=== PATIENT | male | born 1995 | race Caucasian/White ===

== ENCOUNTER 2019-05-16 02:17 | Emergency (ER) | payer BC ==
[2019-05-16] MEDS ORDERED: Lidocaine 1% with EPINEPHrine 1:100,000 20 ML MDV ONE (02:40)
[2019-05-16] MEDS ORDERED: Diphtheria/Tetanus Toxoids,Adult (Td) 0.5 ML SDV IM ONE (03:00)
--- NOTE | 2019-05-16 03:08 | EDM.PDOC ---
ED HPI GENERAL MEDICAL PROBLEM - General Chief Complaint: Laceration Stated Complaint: Needs Stitches Time Seen by Provider: 05/16/19 02:40 Source of Information: Reports: Patient, Significant Other History Limitations: Reports: No Limitations - History of Present Illness INITIAL COMMENTS - FREE TEXT/NARRATIVE: dictated - Related Data Allergies Allergy/AdvReac Type Severity Reaction Status Date / Time No Known Allergies Allergy Verified 05/16/19 03:05 Home Meds: Home Meds NK [No Known Home Meds] 05/16/19 [History] ED ROS GENERAL - Review of Systems Review Of Systems: ROS reveals no pertinent complaints other than HPI. ED EXAM, SKIN/RASH Text/Narrative:: dictated General Appearance: Alert, WD/WN, No Apparent Distress Departure - Departure Time of Disposition: 03:25 Disposition: Home, Self-Care 01 Condition: Good Clinical Impression: Laceration - Discharge Information *PRESCRIPTION DRUG MONITORING PROGRAM REVIEWED*: Not Applicable *COPY OF PRESCRIPTION DRUG MONITORING REPORT IN PATIENT BRANDI: Not Applicable Instructions: Puncture Wound, [id number], Laceration Care, Adult, Easy-to- Read, Stitches, Cristiane, or Adhesive Wound Closure, Qrml-by-Rpyn Referrals: PCP,None [Primary Care Provider] - Forms: ED Department Discharge
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
== END 2019-05-16 03:27 | disposition home or self-care (01) ==
LOC: LB.ED 02:17
DX: S01.112A Laceration without foreign body of left eyelid and periocular area, initial encounter (principal); S00.03XA Contusion of scalp, initial encounter; S91.332A Puncture wound without foreign body, left foot, initial encounter; F10.929 Alcohol use, unspecified with intoxication, unspecified; S91.331A Puncture wound without foreign body, right foot, initial encounter; Y04.0XXA Assault by unarmed brawl or fight, initial encounter; Z23 Encounter for immunization
CPT/HCPCS: 12013; 90471; 90714; 99282